=== PATIENT | male | born 1995 | race Caucasian/White ===

== ENCOUNTER 2017-05-16 09:57 | Emergency (ER) | payer BC ==
[~2017-05-16] VITALS: Ht 157.5 cm; Wt 68.2 kg
[2017-05-16 10:00] VITALS: BP 134/79; PULSE 66; TEMP 98.2
== END 2017-05-16 10:55 | disposition home or self-care (01) ==
LOC: COL.ER 09:57
DX: J02.9 Acute pharyngitis, unspecified (principal)